=== PATIENT | male | born 1960 | race Caucasian/White ===

== ENCOUNTER → 2019-02-10 | Outpatient (CLI) | payer BC ==
[~2019-02-10] MED LIST: AMLO10TA82 PO; COMBIGAN OPTH OU; COMBIGAN OU; LATA2.5D5 OP; LTN005OP2 OU; [UNRECOGNIZED DRUG - OTHER] OU
--- NOTE | 2019-02-10 13:07 | Diagnostic Imaging Report ---
CLINICAL INDICATION: Patient with hypertension. COMPARISON: None. EXAM: Real-time carotid Doppler duplex imaging is performed bilaterally. Peak systolic velocity, ICA/CCA peak systolic ratio, spectral analysis, and vascular morphology are studied. FINDINGS: ARTERY VELOCITY Right Left CCA 0.88 m/s 1.05 m/s ICA 1.09 m/s 0.84 m/s ECA 1.26 m/s 1.33 m/s ICA/CCA 1.2 0.8 VERT.ART Antegrade Antegrade There is minimal atherosclerotic disease involving the bilateral carotid arteries. IMPRESSION: There is no grayscale or Doppler evidence of significant vascular stenosis. Dictated by: Dictated on workstation # [id number]
== END ==
LOC: RAD 11:11
PROVIDERS: ATTEND Internal Medicine
DX: I10 Essential (primary) hypertension (principal); R55 Syncope and collapse
CPT/HCPCS: 93005; 93880

== ENCOUNTER → 2019-02-24 | Outpatient (CLI) | payer BC ==
--- NOTE | 2019-02-24 08:50 | Diagnostic Imaging Report ---
PROCEDURE: CT head without contrast. TECHNIQUE: Multiple contiguous axial images were obtained through the brain without the use of intravenous contrast. Auto Exposure Controls were utilized during the CT exam to meet ALARA standards for radiation dose reduction. INDICATION: Persistent headache and lightheadedness. No prior studies are available for comparison. FINDINGS: The ventricles and sulci are within normal limits. No sulcal effacement or midline shift is seen. No acute intra-axial or extra-axial hemorrhage is detected. Cisterns are patent. Visualized paranasal sinuses are clear. There appears to be a metallic foreign body in the soft tissues just lateral to the left orbit. IMPRESSION: Unremarkable noncontrast CT of the brain. Dictated by: Dictated on workstation # [id number]
== END ==
LOC: RAD 07:44
PROVIDERS: ATTEND Internal Medicine
DX: R51 Headache (principal); R42 Dizziness and giddiness
CPT/HCPCS: 70450

== ENCOUNTER 2019-03-04 01:44 | Emergency (ER) | payer BC ==
[~2019-03-04] VITALS: Ht 175.3 cm; Wt 72.6 kg
--- OUTSIDE RECORDS SUMMARY | 2019-03-04 01:50 | XMS REPORT | Continuity of Care Document ---
Author Organization Unknown Address Unknown Allergies Active Description Code Type Severity Reaction Onset Reported/Identified Relationship to Patient Clinical Status Yes shellfish derived [id number] Drug Allergy Unknown N/A 03/19/2013 Medications There is no data. Problems Date Dx Coded Attending Type Code Diagnosis Diagnosed By 03/09/2013 DEBRA CARLOS, CALOS Lau Ot 211.3 BENIGN NEOPLASM LG BOWEL 03/09/2013 CALOS RICHARDSON MD Ot 562.10 DIVERTICULOSIS COLON (W/O MENT OF HEMORR 03/09/2013 CALOS RICHARDSON MD Ot V76.51 SCREEN MAL NEOP-COLON 03/21/2013 MER CARLOS, NATHAN Wade Ot 211.3 BENIGN NEOPLASM LG BOWEL 03/21/2013 MER CARLOS, NATHAN Wade Ot 285.1 AC POSTHEMORRHAG ANEMIA 03/21/2013 MER CARLOS, NATHAN Wade Ot 401.9 HYPERTENSION NOS 03/21/2013 MER CARLOS, NATHAN Wade Ot 455.6 HEMORRHOIDS NOS 03/21/2013 MER CARLOS, NATHAN Wade Ot 569.84 ANGIODYSPLASIA INTESTINE (W/O MENT OF HE 03/21/2013 MER CARLOS, NATHAN Wade Ot 998.11 HEMOR COMPLIC A PROCEDURE 11/22/2014 CALOS RICHARDSON MD Ot V72.84 02/24/2015 CALOS RICHARDSON MD Ot V72.84 12/25/2016 CALOS RICHARDSON MD, Ot V72.84 EXAM PRE-OPERATIVE NOS 12/26/2016 CALOS RICHARDSON MD Ot V72.84 EXAM PRE-OPERATIVE NOS 02/25/2019 CALOS RICHARDSON MD Ot R42 DIZZINESS AND GIDDINESS 02/25/2019 CALOS RICHARDSON MD Ot R51 HEADACHE Procedures Code Description Performed By Performed On 45.42 ENDOSC POLYPECTOMY OF LG INTEST 03/21/2013 Results There is no data. Encounters ACCT No. Visit Date/Time Discharge Status Pt. Type Provider Facility Loc./Unit Complaint [id number] 02/25/2019 10:06:00 02/25/2019 23:59:59 CLS Preadmit CALOS RICHARDSON MD [facility] CARD SYNCOPE HTH [id number] 02/24/2019 07:44:00 02/24/2019 23:59:59 CLS Outpatient CALOS RICHARDSON MD [facility] RAD PERSISTANT HEADACHE [id number] 02/10/2019 11:11:00 02/10/2019 23:59:59 CLS Outpatient CALOS RICHARDSON MD [facility] RAD PRESYNCOPE, HTN [id number] 03/19/2013 10:36:00 03/21/2013 15:25:00 DIS Inpatient NATHAN DEL ANGEL MD [facility] ICU RECTAL BLEEDING SYMPTOMATIC ANEMIA [id number] 03/09/2013 07:03:00 03/09/2013 10:00:00 DIS Outpatient CALOS RICHARDSON MD [facility] SDC SCREENING [id number] 03/03/2013 07:22:00 03/03/2013 23:59:59 CLS Outpatient CALOS RICHARDSON MD [facility] PREOP SCREENING [id number] 03/04/2019 01:46:00 ACT Emergency MARIALUISA MURCIA DO [facility] ER SEIZURE [id number] 11/22/2014 11:20:00 Document Registration
--- OUTSIDE RECORDS SUMMARY | 2019-03-04 01:50 | XMS REPORT | Continuity of Care Document ---
Author Author [facility] Organization [facility] Address Unknown Phone Unavailable Care Team Providers Care Account Support Associate Name Role Phone CALOS RICHARDSON MD PP Insurance Providers Payer Name Policy Number Subscriber Name Relationship [facility] [id number] Sharon Mosqueda K 02 Advance Directives Directive Response Recorded Date Advance Directives N 03/19/13 12:55pm Health Care Power of Park Landscape Architect N 03/19/13 12:55pm Organ Donor Y 03/19/13 12:55pm Problems No Known Problems or Medical conditions. Family History History Response Recorded Date/Time Hx Family Cancer N 03/19/13 1:05pm Hx Family Cardiac Disorders N 03/19/13 1:05pm Hx Family Stroke Y MOTHER 03/19/13 1:05pm Social History History Response Recorded Date/Time Alcohol Use Denies Use 03/19/13 1:03pm Recreational Drug Use N 03/19/13 1:03pm Hospitalization with Isolation Denies 05/14/13 2:51pm Sexually Transmitted Disease N 03/19/13 1:03pm Allergies, Adverse Reactions, Alerts Allergen Type Severity Reaction Last Updated shellfish derived Allergy Unknown 03/19/13 Medications Medication Dose Units Route Sig Qty Days [Combigan Opth] 1 Drop OU BID Latanoprost (Xalatan) 1 Drop OU HS Amlodipine Besylate 10 Mg PO DAILY [Comgiban Opth] 1 Drop OU BID [Combigan 0.2/0.5%] 1 Drops OU BID Latanoprost 2.5 Ml OP DAILY Response Recorded Date/Time Status not known Unknown Results No Known Relevant Diagnostic Tests, Laboratory Data and/or Discharge Summary. Procedures Procedure Code Date REMOVE IN/EX HEM GROUPS 2+ 02720 08/01/09 COLONOSCOPY AND BIOPSY 40306 03/09/13 ENDOSC POLYPECTOMY OF LG INTEST 45.42 03/21/13 Encounters Encounter Location Date/Time Discharged Inpatient [facility] 03/19/13 10:36am
--- OUTSIDE RECORDS SUMMARY | 2019-03-04 01:50 | XMS REPORT | Continuity of Care Document ---
Author Author [facility] Organization [facility] Address Unknown Phone Unavailable Care Team Providers Care Environmental Epidemiologist Name Role Phone CALOS RICHARDSON MD PP Insurance Providers Payer Name Policy Number Subscriber Name Relationship [facility] [id number] Sharon Mosqueda K 02 Advance Directives Directive Response Recorded Date Advance Directives N 03/19/13 12:55pm Health Care Power of Wire Charger N 03/19/13 12:55pm Organ Donor Y 03/19/13 12:55pm Problems No Known Problems or Medical conditions. Family History History Response Recorded Date/Time Hx Family Cancer N 03/19/13 1:05pm Social History History Response Recorded Date/Time Alcohol Use Denies Use 03/19/13 1:03pm Recreational Drug Use N 03/19/13 1:03pm Hospitalization with Isolation Denies 03/21/13 4:12pm Allergies, Adverse Reactions, Alerts Allergen Type Severity [...] Recorded Date/Time Status not known Unknown Results Test Date Result Interp. Ref. Range Activated Partial Thromboplast Time March 19, 2013 9:42am 37 SEC H 24-35 Alanine Aminotransferase (ALT/SGPT) March 19, 2013 9:42am 42 U/L N 30-65 Albumin March 19, 2013 9:42am 3.2 G/DL L 3.4-5.0 Alkaline Phosphatase March 19, 2013 9:42am 89 U/L N 50-136 Aspartate Amino Transf (AST/SGOT) March 19, 2013 9:42am 19 U/L N 15-37 BUN/Creatinine Ratio March 19, 2013 9:42am 20 - Basophils # (Auto) March 19, 2013 9:42am 0.0 10^3/uL N 0.0-0.1 Basophils (%) (Auto) March 19, 2013 9:42am 0 % N 0-10 Blood Urea Nitrogen March 19, 2013 9:42am 20 MG/DL H 7-18 Calcium Level March 19, 2013 9:42am 7.9 MG/DL L 8.5-10.1 Carbon Dioxide Level March 19, 2013 9:42am 25 MMOL/L N 21-32 Chloride Level March 19, 2013 9:42am 105 MMOL/L N 101-110 Creatinine March 19, 2013 9:42am 1.0 MG/DL N 0.6-1.3 Eosinophils # (Auto) March 19, 2013 9:42am 0.0 10^3/uL N 0.0-0.3 Eosinophils (%) (Auto) March 19, 2013 9:42am 1 % N 0-10 Glucose Level March 19, 2013 9:42am 133 MG/DL H 74-106 Hematocrit March 19, 2013 9:42am 15 % PL 40-54 Hemoglobin March 19, 2013 9:42am 5.2 G/DL PL 13.3-17.7 Lymphocytes # (Auto) March 19, 2013 9:42am 0.7 X 10^3 L 1.0-4.0 Lymphocytes (%) (Auto) March 19, 2013 9:42am 28 % N 12-44 Magnesium Level March 19, 2013 9:42am 2.0 MG/DL N 1.8-2.4 Mean Corpuscular Hemoglobin March 19, 2013 9:42am 34 PG N 25-34 Mean Corpuscular Hemoglobin Concent March 19, 2013 9:42am 34 G/DL N 32-36 Mean Corpuscular Volume March 19, 2013 9:42am 99 FL N 80-99 Mean Platelet Volume March 19, 2013 9:42am 11.4 FL H 7.4-10.4 Monocytes # (Auto) March 19, 2013 9:42am 0.2 X 10^3 N 0.0-1.0 Monocytes (%) (Auto) March 19, 2013 9:42am 8 % N 0-12 Neutrophils # (Auto) March 19, 2013 9:42am 1.6 X 10^3 L 1.8-7.8 Neutrophils (%) (Auto) March 19, 2013 9:42am 62 % N 42-75 Platelet Count March 19, 2013 9:42am 69 10^3/uL L 130-400 Potassium Level March 19, 2013 9:42am 3.8 MMOL/L N 3.6-5.0 Prothrombin Time March 19, 2013 9:42am 26.1 SEC H 12.2-14.7 Red Blood Count March 19, 2013 9:42am 1.55 10^6/uL L 4.35-5.85 Red Cell Distribution Width March 19, 2013 9:42am 12.0 % N 10.0-14.5 Sodium Level March 19, 2013 9:42am 137 MMOL/L N 135-145 Total Bilirubin March 19, 2013 9:42am 0.6 MG/DL N 0.0-1.0 Total Protein March 19, 2013 9:42am 5.9 G/DL L 6.4-8.2 Troponin I March 19, 2013 9:42am < 0.10 NG/ML 0.00-0.10 White Blood Count March 19, 2013 9:42am 2.6 10^3/uL L 4.3-11.0 Estimat Glomerular Filtration Rate March 19, 2013 9:42am > 60 - INR Comment March 19, 2013 9:42am 2.5 H 0.8-1.4 Procedures Procedure Code Date REMOVE IN/EX HEM GROUPS 2+ 24217 08/01/09 COLONOSCOPY AND BIOPSY 18254 03/09/13 MRSA Screen 08/01/09 Encounters Encounter Location Date/Time Discharged Inpatient [facility] 03/19/13 10:36am
--- OUTSIDE RECORDS SUMMARY | 2019-03-04 01:50 | XMS REPORT | Continuity of Care Document ---
Author Author [facility] Organization [facility] Address Unknown Phone Unavailable Care Team Providers Care Higher Education Administrator Name Role Phone SEUN ALATORRE MD PP Insurance Providers Payer Name Policy Number Subscriber Name Relationship [facility] [employer] [employer]. [id number] Sharon Mosqueda K 02 Advance Directives Directive Response Recorded Date Advance Directives N 03/09/13 7:41am Health Care Power of Fashion Design Professor N 03/09/13 7:41am Organ Donor N 03/09/13 7:41am Problems No Known Problems or Medical conditions. Allergies, Adverse Reactions, Alerts Allergen Type Severity Reaction Last Updated No Known Drug Allergies 03/09/13 Medications Medication Dose Units Route Sig Qty Days [Combigan 0.2/0.5%] 1 Drops OU BID Latanoprost 2.5 Ml OP DAILY Amlodipine Besylate 1 Each PO DAILY Response Recorded Date/Time Status not known Unknown Results No Known Relevant Diagnostic Tests, Laboratory Data and/or Discharge Summary. Procedures Procedure Code Date REMOVE IN/EX HEM GROUPS 2+ 46296 08/01/09 MRSA Screen 08/01/09
[2019-03-04] MEDS ORDERED: LACTATED RINGERS 1,000 ML IV ONE (01:53)
[2019-03-04 01:57] VITALS: BP 147/89
[2019-03-04 01:58] LABS: BASOPHILS % (AUTO) 0 % (0-10); EOSINOPHILS # (AUTO) 0.2 10^3/uL (0.0-0.3); EOSINOPHILS % (AUTO) 3 % (0-10); HEMATOCRIT 45 % (40-54); LYMPHOCYTES # (AUTO) 2.7 X 10^3 (1.0-4.0); LYMPHOCYTES % (AUTO) 39 % (12-44); MEAN CORPUSCULAR HEMOGLOBIN 34 PG (25-34); MEAN CORPUSCULAR HGB CONC 36 G/DL (32-36); MEAN CORPUSCULAR VOLUME 96 FL (80-99); MONOCYTES # (AUTO) 0.7 X 10^3 (0.0-1.0); MONOCYTES % (AUTO) 10 % (0-12); NEUTROPHILS # (AUTO) 3.4 X 10^3 (1.8-7.8); NEUTROPHILS % (AUTO) 49 % (42-75); PLATELET COUNT 153 10^3/uL (130-400); RED CELL DISTRIBUTION WIDTH 12.5 % (10.0-14.5); WHITE BLOOD COUNT 6.9 10^3/uL (4.3-11.0)
[2019-03-04 02:08] LABS: PROTHROMBIN TIME PATIENT 13.2 SEC (12.2-14.7)
--- NOTE | 2019-03-04 02:14 | ED Neurological Problem ---
General Chief Complaint: Neurological Problems Stated Complaint: SEIZURE Nursing Triage Note: pt arrives by EMS to room 3 after pt found seizing in bed by . pt has small bite to tip on tongue. upon arrival, pt alert and oriented x 2. pt reports no pain at this time. Nursing Sepsis Screen: No Definite Risk Source: patient (PT HAS NO RECOLLECTION OF EVENT), family (, DAUGHTER), EMS History of Present Illness Date Seen by Provider: March 04, 2019 Time Seen by Provider: 01:45 Initial Comments PT ARRIVES VIA EMS FROM HOME STATES THAT PT WENT TO BED AROUND MIDNIGHT AND WAS FINE SHE WOKE UP TO HIM SHAKING ALL OVER WITH SEIZURE -LIKE ACTIVITY, LASTED 1-2 MINUTES, THEN IMMEDIATELY HAD SNOROUS BREATHING AND WAS DIFFICULT TO ROUSE. LESS THAN 5 MINUTES AFTER THAT, PT HAD ANOTHER EPISODE OF SEIZURE ACTIVITY-FAM YVONNE DESCRIBES GENERALIZED TONIC-CLONIC ACTIVITY. AGAIN LASTING 1-2 MINUTES WITH SNOROUS BREATHING AFTER, AND DIFFICULT TO ROUSE--DAUGHTER IS MANUFACTURING MAINTENANCE MANAGER AND WITNESSED SECOND SEIZURE AND STATES HE APPEARED TO BE POST ICTAL FOR AT LEAST 20 MINUTES AFTERWARDS. EMS REPORT THAT PT APPEARED POST ICTAL ON THEIR ARRIVAL, AND PT WAS NOT TALKING OR FOLLOWING COMMANDS, BUT THAT MENTATION HAS IMPROVED ENROUTE AND WILL NOW SAY A FEW WORDS AND FOLLOW A FEW SIMPLE COMMANDS FAMILY REPORTS THAT HE WAS INCONTINENT OF SMALL AMOUNT OF URINE--HAVING VOIDED JUST BEFORE HE WENT TO BED. FAMILY REPORTS THAT PT HAS HAD MULTIPLE EPISODES AT WORK, OVER AT LEAST THE LAST TWO YEARS, OF POSSIBLE SYNCOPAL--TYPE EPISODES ( PT WOULD NOT ELABORATE HIS SYMPTOMS TO FAMILY, NOR SEEK MEDICAL CARE FOR THEM ), AND FAMILY HAD NEVER WITNESSED THEM UNTIL ABOUT 6-8 WEEKS AGO-- STATES HE WAS SITTING AT DINNER TABLE AND SUDDENLY PASSED OUT--LASTED 20 SECONDS OR SO, THEN WHEN PT CAME TO, HE WAS SOMEWHAT CONFUSED FOR SEVERAL MINUTES AND HAD NO RECOLLECTION OF EVENT AND DENIED THAT ANYTHING HAD HAPPENED. PT HAS REPORTED THAT HE WILL HAVE ALOT OF PRESSURE IN HIS HEAD RIGHT BEFORE THESE EPISODES. PT JUST RECENTLY SOUGHT CARE FROM HIS PCP FOR THESE EPISODES, AFTER WITNESSED ONE OF THE EPISODES HAD CAROTID ULTRASOUND 02/10/19 AND WAS NORMAL PT HAD CT OF HEAD 02/24/19 AND WAS NORMAL PT HAS NEW PT APPOINTMENT WITH DR. MCDERMOTT FOR CARDIOLOGY CONSULT TOMORROW. PT HAS ECHOCARDIOGRAM SCHEDULED FOR NEXT WEEK ON ARRIVAL TO ER, PT IS SLIGHTLY DROWSY, BUT IS ABLE TO ANSWER QUESTIONS AND FOLLOW COMMANDS. IS ORIENTED TO PERSON, PLACE, DATE, BUT DOES NOT KNOW WHY HE IS HERE OR WHAT HAS OCCURRED. PT DENIES ANY SYMPTOMS AT THIS TIME DENIES HEADACHE DENIES PAIN ANYWHERE DENIES VISION CHANGES DENIES DIZZINESS DENIES NAUSEA/VOMITING/DIARRHEA OR ABDOMINAL PAIN DENIES CHEST PAIN OR PALPITATIONS DENIES SHORTNESS OF BREATH DENIES PARESTHESIAS OR MOTOR DEFICITS DENIES ANY RECENT ILLNESS OR INJURY. PCP: DR. RICHARDSON Allergies and Home Medications Allergies Coded Allergies: shellfish derived (Verified Allergy, Unknown, 03/19/13) Home Medications Amlodipine Besylate 10 Mg Tablet, 10 MG PO DAILY, (Reported) Latanoprost 2.5 Ml Drops, 1 DROP OU HS, (Reported) [Combigan Opth] , 1 DROP OU BID, (Reported) Patient Home Medication List Home Medication List Reviewed: Yes Review of Systems Review of Systems Constitutional: no symptoms reported; No chills, No diaphoresis, No fever Eyes: No Symptoms Reported Ears, Nose, Mouth, Throat: no symptoms reported Respiratory: no symptoms reported; No cough, No short of breath Cardiovascular: see HPI; No chest pain, No palpitations; syncope Gastrointestinal: no symptoms reported Genitourinary: no symptoms reported Musculoskeletal: no symptoms reported; No muscle pain Skin: no symptoms reported Psychiatric/Neurological: See HPI, Cognitive Dysfunction (ONLY IN POST ICTAL STATE); Denies Headache; Tonic Clonic Seizures Endocrine: No Symptoms Reported Hematologic/Lymphatic: No Symptoms Reported Past Yfonpaa-Zjzfty-Ldsfol Hx Patient Social History Alcohol Use: Denies Use Recreational Drug Use: No Smoking Status: Never a Smoker Recent Foreign Travel: No Contact w/Someone Who Travel: No Recent Infectious Disease Expo: No Immunizations Up To Date Tetanus Booster (TDap): More than 5yrs PED Vaccines UTD: Yes Seasonal Allergies Seasonal Allergies: No Past Medical History Surgeries: Yes (LEFT HIP AND LEFT LEG FX'S / ORIF'S DUE TO FALLING OFF A ROOF WHEN YOUNG; COLONOSCOPY/POLYPECTOMY 2012) Orthopedic Respiratory: No Cardiac: Yes Hypertension Neurological: No Reproductive Disorders: No Sexually Transmitted Disease: No Genitourinary: No Gastrointestinal: Yes Hemorrhoids, Polyps Musculoskeletal: Yes (LEFT HIP AND LEG FX'S /ORIF'S ) HEENT: Yes Glaucoma Cancer: No Psychosocial: No Integumentary: No Blood Disorders: No Family Medical History No Pertinent Family Hx Physical Exam Vital Signs Vital Signs - First Documented 03/04/19 03/04/19 01:45 01:57 Temp 98.1 Pulse 76 Resp 23 B/P (MAP) 147/89 (108) Pulse Ox 89 O2 Delivery Room Air O2 Flow Rate 4.00 FiO2 97 Capillary Refill : Less Than 3 Seconds Height, Weight, BMI Height: 5'9.00" Weight: 160lbs. 7.0oz. 72.198229hv; BMI Method:Estimated General Appearance: WD/WN, no apparent distress, other (SLIGHTLY DROWSY) HEENT: PERRL/EOMI, normal ENT inspection, TMs normal, pharynx normal Neck: non-tender, full range of motion, supple, normal inspection; No carotid bruit Respiratory: normal breath sounds, no respiratory distress, no accessory muscle use Cardiovascular: normal peripheral pulses, regular rate, rhythm, no edema, no JVD, no murmur Peripheral Pulses: 2+ Dorsalis Pedis (R), 2+ Left Dors-Pedis (L) Gastrointestinal: normal bowel sounds, non tender, soft Back: no CVA tenderness Extremities: normal range of motion, non-tender, normal inspection, no pedal edema, no calf tenderness, normal capillary refill Neurologic/Psychiatric: brownfield redevelopment specialist II-XII nml as tested, no motor/sensory deficits, alert, normal mood/affect, other (ORIENTED TO PERSON, PLACE, DATE, BUT DOES NOT RECALL EPISODE ) Crainal Nerves: normal hearing, normal speech, PERRL Coordination/Gait: normal finger to nose Motor/Sensory: no motor deficit, no sensory deficit, no pronator drift Reflexes: 1+ Knee (R), 1+ Knee (L) Skin: normal color, warm/dry Progress/Results/Core Measures Results/Orders Lab Results Laboratory Tests Test 03/04/19 01:50 03/04/19 01:57 03/04/19 03:22 Range/Units White Blood Count 6.9 4.3-11.0 10^3/uL Red Blood Count 4.72 4.35-5.85 10^6/uL Hemoglobin 16.0 13.3-17.7 G/DL Hematocrit 45 40-54 % Mean Corpuscular Volume 96 80-99 FL Mean Corpuscular Hemoglobin 34 25-34 PG Mean Corpuscular Hemoglobin Concent 36 32-36 G/DL Red Cell Distribution Width 12.5 10.0-14.5 % Platelet Count 153 130-400 10^3/uL Mean Platelet Volume 12.0 H 7.4-10.4 FL Neutrophils (%) (Auto) 49 42-75 % Lymphocytes (%) (Auto) 39 12-44 % Monocytes (%) (Auto) 10 0-12 % Eosinophils (%) (Auto) 3 0-10 % Basophils (%) (Auto) 0 0-10 % Neutrophils # (Auto) 3.4 1.8-7.8 X 10^3 Lymphocytes # (Auto) 2.7 1.0-4.0 X 10^3 Monocytes # (Auto) 0.7 0.0-1.0 X 10^3 Eosinophils # (Auto) 0.2 0.0-0.3 10^3/uL Basophils # (Auto) 0.0 0.0-0.1 10^3/uL Prothrombin Time 13.2 12.2-14.7 SEC INR Comment 1.0 0.8-1.4 Activated Partial Thromboplast Time 25 24-35 SEC Sodium Level 139 135-145 MMOL/L Potassium Level 4.1 3.6-5.0 MMOL/L Chloride Level 106 98-107 MMOL/L Carbon Dioxide Level 13 L 21-32 MMOL/L Anion Gap 20 H 5-14 MMOL/L Blood Urea Nitrogen 12 7-18 MG/DL Creatinine 1.01 0.60-1.30 MG/DL Estimat Glomerular Filtration Rate > 60 BUN/Creatinine Ratio 12 Glucose Level 99 70-105 MG/DL Calcium Level 9.1 8.5-10.1 MG/DL Corrected Calcium 9.0 8.5-10.1 MG/DL Magnesium Level 2.9 H 1.8-2.4 MG/DL Total Bilirubin 0.6 0.1-1.0 MG/DL Aspartate Amino Transf (AST/SGOT) 27 5-34 U/L Alanine Aminotransferase (ALT/SGPT) 17 0-55 U/L Alkaline Phosphatase 72 40-136 U/L Total Creatine Kinase 140 30-200 U/L Creatine Kinase MB 2.4 <6.6 NG/ML Myoglobin 345.7 H 10.0-92.0 NG/ML Troponin I < 0.028 <0.028 NG/ML Total Protein 7.1 6.4-8.2 GM/DL Albumin 4.1 3.2-4.5 GM/DL TSH [place] Testing 0.87 0.35-4.94 UIU/ML Glucometer 94 70-110 MG/DL Urine Color YELLOW Urine Clarity CLEAR Urine pH 5 5-9 Urine Specific [place] 1.015 L 1.016-1.022 Urine Protein NEGATIVE NEGATIVE Urine Glucose (UA) NEGATIVE NEGATIVE Urine Ketones NEGATIVE NEGATIVE Urine Nitrite NEGATIVE NEGATIVE Urine Bilirubin NEGATIVE NEGATIVE Urine Urobilinogen NORMAL NORMAL MG/DL Urine Leukocyte Esterase NEGATIVE NEGATIVE Urine RBC (Auto) NEGATIVE NEGATIVE Urine RBC NONE /HPF Urine WBC NONE /HPF Urine Squamous Epithelial Cells NONE /HPF Urine Crystals NONE /LPF Urine Bacteria NEGATIVE /HPF Urine Casts NONE /LPF Urine Mucus SMALL H /LPF Urine Other FEW SPERM H /HPF Urine Culture Indicated NO My Orders Orders - MARIALUISA MURCIA DO Accucheck Stat ONCE (03/04/19 01:53) Ed Iv/Invasive Line Start (03/04/19 01:53) Ekg Tracing (03/04/19:53) O2 (03/04/19:53) Monitor-Rhythm Ecg Trace Only (03/04/19:53) Ct Head Wo-R/O Stroke (03/04/19 01:53) Chest 1 View, Ap/Pa Only (03/04/19:53) Cbc With Automated Diff (03/04/19 01:53) Comprehensive Metabolic Panel (03/04/19 01:53) Creatine Kinase (03/04/19 01:53) Creatine Kinase Mb (03/04/19:53) Magnesium (03/04/19:53) Protime With Inr (03/04/19:53) Partial Thromboplastin Time (03/04/19 01:53) Thyroid Analyzer (03/04/19 01:53) Troponin I (03/04/19 01:53) Ua Culture If Indicated (03/04/19:53) Myoglobin Serum (03/04/19 01:53) Ed Iv/Invasive Line Start (03/04/19 01:53) Lactated Ringers (Lr 1000 Ml Iv Solution (03/04/19 01:53) Levetiracetam Injection (Keppra Injectio (03/04/19 02:30) Ns (Ivpb) (Sodium Chloride 0.9% Ivpb Bag (03/04/19 02:39) Levetiracetam Injection (Keppra Injectio (03/04/19 02:39) Levetiracetam Injection (Keppra Injectio (03/04/19 02:40) Medications Given in ED Current Medications Medications Dose Ordered Sig/Toro Route Start Time Stop Time Status Last Admin Dose Admin Lactated Ringer's 1,000 ml @ 0 mls/hr Q0M ONCE IV 03/04/19 01:53 03/04/19 01:55 DC 03/04/19 02:10 0 MLS/HR Vital Signs/I&O 03/04/19 03/04/19 03/04/19 03/04/19 01:45 01:57 01:58 03:07 Temp 98.1 98.1 Pulse 76 76 66 Resp 21 B/P (MAP) 147/89 (108) 147/89 (108) 145/97 (113) Pulse Ox 89 89 95 O2 Delivery Room Air Room Air Nasal Cannula O2 Flow Rate 4.00 4.00 FiO2 97 03/04/19 03/04/19 03:39 04:14 Temp 98.2 Pulse 66 68 Resp 22 B/P (MAP) 143/88 (106) 139/96 (110) Pulse Ox 96 95 O2 Delivery Nasal Cannula Nasal Cannula O2 Flow Rate 4.00 4.00 Blood Pressure Mean: 108 FSBG Bedside Testing Finger Stick Blood Glucose: 94 Blood Glucose Action Taken: rn notified Progress Progress Note : Progress Note UNEVENTFUL ER STAY NO SEIZURES OR SYNCOPAL EPISODES NO SYMPTOMS OF ANY KIND DURING ER STAY VITALS REMAINED STABLE GIVEN KEPPRA LOADING DOSE Initial ECG Impression Date: March 04, 2019 Initial ECG Impression Time: 01:50 Initial ECG Rate: 76 Initial ECG Rhythm: Normal Sinus Initial ECG Impression: Normal Diagnostic Imaging Comments CXR--NO ACUTE PROCESS, PENDING RADIOLOGIST REVIEW CT HEAD--NO ACUTE PROCESS, BB ABOVE LEFT EYE ( PT STATES IS FROM CHILDHOOD) PER [facility] RADIOLOGIST VIA PHONE AT [phone] Reviewed: Reviewed by Me, Discussed w/Radiologist Departure Communication (Admissions) NO BEDS AVAILABLE HERE 0248--CALLED [facility], HAVE BED. PAGING HOSPITALIST [phone]--SPOKE WITH DR. GRAJEDA, HOSPITALIST, ACCEPTS PT FOR ADMIT/TRANSFER. NO ADDITIONAL RECOMMENDATIONS AT THIS TIME Impression Primary Impression: NEW ONSET SEIZURES Disposition: 02 XFER SHT-TRM HOSP Condition: Stable Transfer Transfer Facility: [facility] Method of Transfer: EMS Departure-Patient Inst. Referrals: CALOS RICHARDSON MD (PCP/Family) Primary Care Physician MARIALUISA MURCIA DO March 04, 2019 02:14
[2019-03-04 02:17] LABS: ALANINE AMINOTRANSFERASE 17 U/L (0-55); ALBUMIN 4.1 GM/DL (3.2-4.5); ALKALINE PHOSPHATASE 72 U/L (40-136); BILIRUBIN,TOTAL 0.6 MG/DL (0.1-1.0); BUN/CREATININE RATIO 12; CALCIUM 9.1 MG/DL (8.5-10.1); CARBON DIOXIDE 13 MMOL/L (21-32); CHLORIDE 106 MMOL/L (98-107); CREATINE KINASE 140 U/L (30-200); CREATININE SERUM 1.01 MG/DL (0.60-1.30); GFR ESTIMATED > 60; GLUCOSE 99 MG/DL (70-105); MAGNESIUM 2.9 MG/DL (1.8-2.4); POTASSIUM 4.1 MMOL/L (3.6-5.0); SODIUM 139 MMOL/L (135-145); TOTAL PROTEIN 7.1 GM/DL (6.4-8.2)
[2019-03-04] MEDS ORDERED: LEVETIRACETAM INJECTION 1,000 MG in NS (IVPB) 100 ML IV SCH (02:30)
[2019-03-04 02:37] LABS: CREATINE KINASE MB 2.4 NG/ML (<6.6); TSH (THYROID ANALYZER) 0.87 UIU/ML (0.35-4.94)
[2019-03-04] MEDS ORDERED: NS (IVPB) 100 ML ONE (02:39)
[2019-03-04] MEDS ORDERED: LEVETIRACETAM 500 MG/5 ML (KEPPRA) VIAL IV ONE ×2 (02:39→02:40)
[2019-03-04 03:07] VITALS: BP 145/97
[2019-03-04 03:29] LABS: BILIRUBIN,URINE NEGATIVE (NEGATIVE); CLARITY,URINE CLEAR; COLOR,URINE YELLOW; GLUCOSE, URINE (UA) NEGATIVE (NEGATIVE); KETONES,URINE NEGATIVE (NEGATIVE); LEUKOCYTE ESTERASE ,URINE NEGATIVE (NEGATIVE); NITRITE,URINE NEGATIVE (NEGATIVE); PH,URINE 5 (5-9); PROTEIN,URINE NEGATIVE (NEGATIVE); UROBILINOGEN,URINE NORMAL (NORMAL)
[2019-03-04 03:39] VITALS: BP 143/88
[2019-03-04 03:40] LABS: BACTERIA,URINE NEGATIVE /HPF; URINE OTHER FEW SPERM /HPF
[2019-03-04 04:14] VITALS: BP 139/96
--- NOTE | 2019-03-04 06:35 | Diagnostic Imaging Report ---
PROCEDURE: CT head wo r/o stroke. TECHNIQUE: Multiple contiguous axial images were obtained through the brain without the use of intravenous contrast. Auto Exposure Controls were utilized during the CT exam to meet ALARA standards for radiation dose reduction. INDICATION: Seizure. Comparison: 02/24/2019. Findings: No hyperdense hemorrhage or space-occupying mass. No hydrocephalus or midline shift. Murguia-white matter differentiation is well preserved. Basilar cisterns remain patent. No skull fracture. Stable metallic focus superficial to the left globe which may represent a piercing. Paranasal sinuses and mastoid air cells are clear. Impression: 1. No acute intracranial process. 2. Findings are in agreement with the preliminary report. Dictated by: Dictated on workstation # [id number]
--- NOTE | 2019-03-04 06:47 | Diagnostic Imaging Report ---
INDICATION: Seizure. COMPARISON: None available. FINDINGS: No consolidation within the visualized lungs. Retrocardiac linear opacities are likely due to combination of atelectasis and normal pulmonary vasculature. No pleural effusion or pneumothorax. Heart is borderline enlarged, but likely accentuated due to portable technique. IMPRESSION: 1. Left lower lobe linear subsegmental atelectasis. No acute process. Dictated by: Dictated on workstation # [id number]
== END 2019-03-04 04:14 | disposition short-term general hospital (02) ==
LOC: EDUNIT# 01:44 → ER 01:46
DX: R56.9 Unspecified convulsions (principal); I10 Essential (primary) hypertension; Z87.19 Personal history of other diseases of the digestive system; Z86.010 Personal history of colon polyps
CPT/HCPCS: 36415; 70450; 71045; 80053; 81000; 82550; 82553; 82962; 83735; 83874; 84443; 84484; 85025; 85610; 85730; 93005; 93041; 96361; 96365

== ENCOUNTER 2019-04-20 20:00 | Outpatient (CLI) | payer BC | END 2019-04-21 06:51 | disposition home or self-care (01) | LOC: SLEEP 20:00 | PROVIDERS: ATTEND Family Medicine | DX: G40.309 Generalized idiopathic epilepsy and epileptic syndromes, not intractable, without status epilepticus (principal); I10 Essential (primary) hypertension; R06.81 Apnea, not elsewhere classified; R53.83 Other fatigue; G47.36 Sleep related hypoventilation in conditions classified elsewhere; G47.61 Periodic limb movement disorder | CPT/HCPCS: 95810 ==

== ENCOUNTER 2019-11-01 12:03 | Outpatient (RCR) | payer BC | END 2020-01-30 | disposition home or self-care (01) | LOC: CARD 12:03 | PROVIDERS: ATTEND Family Medicine | DX: R00.1 Bradycardia, unspecified (principal) | CPT/HCPCS: 93225; 93226 ==

== ENCOUNTER 2023-01-29 21:02 | Inpatient (IN) | payer BC ==
[~2023-01-29] VITALS: Ht 182.9 cm; Wt 110.0 kg
[2023-01-29] MEDS ORDERED: fentaNYL INJ 100 MCG/2 ML AMP IVP STA (21:39)
[2023-01-29] MEDS ORDERED: LACTATED RINGERS 1,000 ML IV ONE ×2 (21:45→23:30)
[2023-01-29] MEDS ORDERED: ONDANSETRON 4 MG/2 ML (SDV) Z0FRAN IVP ONE (21:45)
[2023-01-29] MEDS ORDERED: PANTOPRAZOLE 40 MG (PROTONIX) VIAL IV ONE (21:45)
[2023-01-29 21:52] LABS: BASOPHILS # (AUTO) 0.1 10^3/uL (0.0-0.1); BASOPHILS % (AUTO) 0 % (0-10); EOSINOPHILS # (AUTO) 0.3 10^3/uL (0.0-0.3); EOSINOPHILS % (AUTO) 2 % (0-10); HEMATOCRIT 48 % (40-54); LYMPHOCYTES # (AUTO) 1.2 10^3/uL (1.0-4.0); LYMPHOCYTES % (AUTO) 11 % (12-44); MEAN CORPUSCULAR HEMOGLOBIN 33 pg (25-34); MEAN CORPUSCULAR HGB CONC 35 g/dL (32-36); MEAN CORPUSCULAR VOLUME 93 fL (80-99); MEAN PLATELET VOLUME 11.9 fL (9.0-12.2); MONOCYTES # (AUTO) 0.7 10^3/uL (0.0-1.0); MONOCYTES % (AUTO) 6 % (0-12); NEUTROPHILS # (AUTO) 9.2 10^3/uL (1.8-7.8); NEUTROPHILS % (AUTO) 80 % (42-75); PLATELET COUNT 158 10^3/uL (130-400); WHITE BLOOD COUNT 11.5 10^3/uL (4.3-11.0)
[2023-01-29 21:57] LABS: ALBUMIN 3.9 GM/DL (3.2-4.5); POTASSIUM 3.6 MMOL/L (3.6-5.0)
[2023-01-29 21:59] LABS: TOTAL PROTEIN 6.9 GM/DL (6.4-8.2)
[2023-01-29 22:01] LABS: BILIRUBIN,TOTAL 6.9 MG/DL (0.1-1.0)
[2023-01-29 22:03] LABS: CREATININE SERUM 0.97 MG/DL (0.60-1.30)
[2023-01-29 22:06] LABS: MAGNESIUM 2.2 MG/DL (1.6-2.4)
[2023-01-29 22:12] LABS: ERYTHROCYTE SEDIMENTATION RATE 12 MM/HR (0-30)
[2023-01-29 22:19] LABS: INR 0.9 (0.8-1.4); PROTHROMBIN TIME PATIENT 12.9 SEC (12.2-14.7)
--- NOTE | 2023-01-29 22:43 | ED GI ---
General Chief Complaint: Abdominal/GI Problems Stated Complaint: ABDOMINAL PAIN Nursing Triage Note: PT AMB TO ED BY POV WITH C/O APD PAIN, N/V. PT REPORTS UPPER ABD PAIN AND NAUSEA BEGINNING FRIDAY, MUCH WORSE TODAY. PT HAS HAD DECREASED APPETITE, LBM TODAY AND LOOSE, DENIES BLACK OR BLOODY STOOLS. PAIN AND NAUSEA WORSE AFTER ATTEMPTING TO EAT AND WHEN TAKING A DEEP BREATH. Source of Information: Spouse History of Present Illness Date Seen by Provider: Jan 29, 2023 Time Seen by Provider: 21:35 Initial Comments PT ARRIVES VIA POV FROM HOME PT HAS BEEN HAVING EPIGASTRIC ABDOMINAL PAIN AND NAUSEA SINCE FRIDAY HIS PAIN HAS PROGRESSIVELY GOTTEN WORSE, AND TODAY HE BEGAN VOMITING--NO HEMATEMESIS OR COFFEE GROUND EMESIS HAS HAS DECREASED APPETITE, AND HAS HAD MINIMAL INTAKE SINCE FRIDAY, HE HAS BEEN DRINKING LIQUIDS, BUT TODAY HE HAS BEEN VOMITING LIQUIDS BACK UP TODAY HE TRIED TO EAT CHICKEN NOODLE SOUP AND PAIN AND NAUSEA BECAME MUCH WORSE, AND TRIED MYLANTA AND IT MADE IT MUCH WORSE AND VOMITED AFTERWARD ALSO HURTS HIS ABDOMEN TO TAKE A DEEP BREATH HAD A LOOSE BM AROUND 1500 TODAY--NO BLACK/BLOODY/TARRY STOOLS HE IS STILL URINATING A NORMAL AMOUNT, BUT HAS BEEN A DARK ORANGE COLOR NO KNOWN FEVER, NO SWEATS OR CHILLS PT NOTICED THAT HIS SKIN WAS YELLOW A COUPLE OF DAYS AGO. HE HAS NOT BEEN ABLE TO KEEP DOWN HIS REGULAR MEDICATIONS TODAY PT HAS NOT HAD ANY PRIOR ABDOMINAL SURGERIES OR ANY PRIOR GI PROBLEMS HE HAS HISTORY OF HTN, EPILEPSY, MIGRAINES, GLAUCOMA HE HAS HAD HEMORRHOID SURGERY AND A COLONOSCOPY. PCP: DR. LORRAINE MORALES Allergies and Home Medications Allergies Coded Allergies: shellfish derived (Verified Allergy, Unknown, 03/19/13) Patient Home Medication List Home Medication List Reviewed: Yes Amlodipine Besylate (Norvasc Tablet) 10 Mg Tablet, 10 MG PO DAILY, (Reported) Entered as Reported by: DILMA DIAZ on 03/09/13 1341 Latanoprost (Xalatan) 2.5 Ml Drops, 1 DROP OU HS, (Reported) Entered as Reported by: CATHI CARDONA on 03/19/13 1232 [Combigan Opth] , 1 DROP OU BID, (Reported) Entered as Reported by: CATHI CARDONA on 03/19/13 1233 Review of Systems Review of Systems Constitutional: see HPI; No fever; malaise, weakness EENTM: No Symptoms Reported Respiratory: No Symptoms Reported Cardiovascular: No Symptoms Reported Gastrointestinal: See HPI, Abdominal Pain, Nausea, Poor Appetite, Poor Fluid Intake, Vomiting Genitourinary: See HPI Musculoskeletal: no symptoms reported Skin: see HPI, change in color Psychiatric/Neurological: No Symptoms Reported Endocrine: No Symptoms Reported Hematologic/Lymphatic: No Symptoms Reported Past Cgzdixf-Kqxmjp-Klsita Hx Patient Social History Tobacco Use?: No Use of E-Cig and/or Vaping dev: No Substance use?: No Alcohol Use?: No Pt feels they are or have been: No Immunizations Up To Date Tetanus Booster (TDap): More than 5yrs PED Vaccines UTD: Yes Influenza Vaccine Up-to-Date: Yes; Up-to-Date First/Initial COVID19 Vaccinat: X2 Second COVID19 Vaccination Gabriel: X2 Seasonal Allergies Seasonal Allergies: No Past Medical History Surgery/Hospitalization HX: EPILEPSY, MIGRAINES, HTN, GLAUCOMA Surgeries: Yes Orthopedic, Rectal Respiratory: No Cardiac: Yes Hypertension Neurological: Yes (SEIZURES DX 2019) Headaches /Migraines, Seizure Disorder Reproductive Disorders: No Sexually Transmitted Disease: No Genitourinary: No Gastrointestinal: Yes Hemorrhoids, Polyps Musculoskeletal: Yes (LEFT HIP AND LEG FX'S /ORIF'S ) Fractures Endocrine: No HEENT: Yes Glaucoma Cancer: No Psychosocial: No Integumentary: No Blood Disorders: No Family Medical History No Pertinent Family Hx PAST SURGICAL HISTORY: -HEMORRHOIDECTOMY 2008 -COLONOSCOPY / POLYPECTOMY 2012 -LEFT HIP FRACTURE WITH ORIF AND LEFT LEG FRACTURE WITH ORIF DUE TO FALLING OFF A ROOF WHEN YOUNG Physical Exam Vital Signs Vital Signs - First Documented 01/29/23 21:22 Temp 36.0 Pulse 81 Resp 18 B/P (MAP) 189/127 (147) Pulse Ox 93 O2 Delivery Room Air Capillary Refill : Less Than 3 Seconds Height/Weight/BMI Height: 5'9.00" Weight: 160lbs. 7.0oz. 72.681651so; 32.00 BMI Method:Estimated General Appearance: WD/WN, other (LOOKS UNCOMFORTABLE, MOANING, HOLDING HANDS OVER UPPER ABDOMEN AND COVERING EYES. ) HEENT: scleral icterus (R), scleral icterus (L) Neck: normal inspection Respiratory: normal breath sounds, no respiratory distress, no accessory muscle use Cardiovascular: regular rate, rhythm, no murmur Gastrointestinal: abnormal bowel sounds (DECREASED), guarding, rebound, tenderness (MARKED EPIGASTRIC TENDERNESS); No hernia, No mass Extremities: normal inspection, normal capillary refill Back: no CVA tenderness Neurologic/Psychiatric: real estate consultant II-XII nml as tested, no motor/sensory deficits, alert, oriented x 3 Skin: warm/dry, jaundice Focused Exam Lactate Level 01/29/23 21:55: Lactic Acid Level 1.17 Lactic Acid Level Laboratory Tests Test 01/29/23 21:55 Lactic Acid Level 1.17 MMOL/L (0.50-2.00) Progress/Results/Core Measures Results/Orders Lab Results Laboratory Tests Test 01/29/23 21:34 01/29/23 21:55 01/29/23 23:59 Range/Units White Blood Count 11.5 H 4.3-11.0 10^3/uL Red Blood Count 5.17 4.30-5.52 10^6/uL Hemoglobin 17.0 13.3-17.7 g/dL Hematocrit 48 40-54 % Mean Corpuscular Volume 93 80-99 fL Mean Corpuscular Hemoglobin 33 25-34 pg Mean Corpuscular Hemoglobin Concent 35 32-36 g/dL Red Cell Distribution Width 12.0 10.0-14.5 % Platelet Count 158 130-400 10^3/uL Mean Platelet Volume 11.9 9.0-12.2 fL Immature Granulocyte % (Auto) 0 % Neutrophils (%) (Auto) 80 H 42-75 % Lymphocytes (%) (Auto) 11 L 12-44 % Monocytes (%) (Auto) 6 0-12 % Eosinophils (%) (Auto) 2 0-10 % Basophils (%) (Auto) 0 0-10 % Neutrophils # (Auto) 9.2 H 1.8-7.8 10^3/uL Lymphocytes # (Auto) 1.2 1.0-4.0 10^3/uL Monocytes # (Auto) 0.7 0.0-1.0 10^3/uL Eosinophils # (Auto) 0.3 0.0-0.3 10^3/uL Basophils # (Auto) 0.1 0.0-0.1 10^3/uL Immature Granulocyte # (Auto) 0.0 0.0-0.1 10^3/uL Erythrocyte Sedimentation Rate 12 0-30 MM/HR Prothrombin Time 12.9 12.2-14.7 SEC INR Comment 0.9 0.8-1.4 Activated Partial Thromboplast Time 27 24-35 SEC Sodium Level 137 135-145 MMOL/L Potassium Level 3.6 3.6-5.0 MMOL/L Chloride Level 100 98-107 MMOL/L Carbon Dioxide Level 22 21-32 MMOL/L Anion Gap 15 H 5-14 MMOL/L Blood Urea Nitrogen 10 7-18 MG/DL Creatinine 0.97 0.60-1.30 MG/DL Estimat Glomerular Filtration Rate 89 BUN/Creatinine Ratio 10 Glucose Level 99 70-105 MG/DL Calcium Level 9.0 8.5-10.1 MG/DL Corrected Calcium 9.1 8.5-10.1 MG/DL Magnesium Level 2.2 1.6-2.4 MG/DL Total Bilirubin 6.9 H 0.1-1.0 MG/DL Aspartate Amino Transf (AST/SGOT) 287 H 5-34 U/L Alanine Aminotransferase (ALT/SGPT) 405 H 0-55 U/L Alkaline Phosphatase 225 H 40-136 U/L Ammonia 49 H 11-32 UMOL/L Myoglobin 40.1 10.0-92.0 NG/ML C-Reactive Protein High Sensitivity 2.40 H 0.00-0.50 MG/DL Total Protein 6.9 6.4-8.2 GM/DL Albumin 3.9 3.2-4.5 GM/DL Amylase Level 47 25-125 U/L Lipase 35 8-78 U/L Lactic Acid Level 1.17 0.50-2.00 MMOL/L Urine Color YELLOW Urine Clarity CLEAR Urine pH 6.0 5-9 Urine Specific [place] 1.015 L 1.016-1.022 Urine Protein NEGATIVE NEGATIVE Urine Glucose (UA) NEGATIVE NEGATIVE Urine Ketones 3+ H NEGATIVE Urine Nitrite NEGATIVE NEGATIVE Urine Bilirubin 1+ H NEGATIVE Urine Urobilinogen 2.0 < = 1.0 MG/DL Urine Leukocyte Esterase NEGATIVE NEGATIVE Urine RBC (Auto) TRACE-I H NEGATIVE Urine RBC RARE /HPF Urine WBC RARE /HPF Urine Squamous Epithelial Cells RARE /HPF Urine Crystals NONE /LPF Urine Bacteria NEGATIVE /HPF Urine Casts NONE /LPF Urine Mucus NEGATIVE /LPF Urine Culture Indicated NO My Orders Orders - MARIALUISA MURCIA DO Ed Iv/Invasive Line Start (01/29/23 21:39) Monitor-Rhythm Ecg Trace Only (01/29/23 21:39) Chest 1 View, Ap/Pa Only (01/29/23 21:39) Ammonia (01/29/23 21:39) Amylase (01/29/23 21:39) Cbc With Automated Diff (01/29/23 21:39) Comprehensive Metabolic Panel (01/29/23:39) Hs C Reactive Protein (01/29/23 21:39) Lactic Acid Analyzer (01/29/23 21:39) Lipase (01/29/23 21:39) Magnesium (01/29/23:39) Protime With Inr (01/29/23:39) Partial Thromboplastin Time (01/29/23:39) Ua Culture If Indicated (01/29/23:39) Erythrocyte Sedimentation Rate (01/29/23 21:39) Myoglobin Serum (01/29/23 21:39) Ed Iv/Invasive Line Start (01/29/23 21:39) Lactated Ringers (Lr 1000 Ml Iv Solution (01/29/23 21:45) Ondansetron Injection (Zofran Injectio (01/29/23 21:45) Fentanyl Inj (Sublimaze Injection) (01/29/23 21:39) Pantoprazole Injection (Protonix Injecti (01/29/23 21:45) Ct Chest/Abdomen/Pelvis Wo (01/29/23 21:39) Hepatitis Panel Acute (01/29/23 23:28) Ed Iv/Invasive Line Start (01/29/23 23:29) Lactated Ringers (Lr 1000 Ml Iv Solution (01/29/23 23:30) Fentanyl Inj (Sublimaze Injection) (01/29/23 23:45) Medications Given in ED Current Medications Medications Dose Ordered Sig/Toro Route Start Time Stop Time Status Last Admin Dose Admin Fentanyl Citrate 50 mcg ONCE ONCE IVP 01/29/23 23:45 01/29/23 23:46 DC 01/29/23 23:55 50 MCG Lactated Ringer's 1,000 ml @ 0 mls/hr Q0M ONCE IV 01/29/23 21:45 01/29/23 21:46 DC 01/29/23 21:57 1,000 MLS/HR Lactated Ringer's 1,000 ml @ 0 mls/hr Q0M ONCE IV 01/29/23 23:30 01/29/23 23:31 DC 01/29/23 23:39 1,000 MLS/HR Ondansetron HCl 8 mg ONCE ONCE IVP 01/29/23 21:45 01/29/23 21:46 DC 01/29/23 21:57 8 MG Pantoprazole 40 mg ONCE ONCE IV 01/29/23 21:45 01/29/23 21:46 DC 01/29/23 21:57 40 MG Vital Signs/I&O 01/29/23 01/30/23 21:22 00:36 Temp 36.0 37.8 Pulse 81 90 Resp 18 B/P (MAP) 189/127 (147) 172/90 Pulse Ox 93 O2 Delivery Room Air 01/29/23 23:59 Intake Total 1000 ml Balance 1000 ml Blood Pressure Mean: 147 Progress Progress Note : Progress Note GIVEN: -IV FLUIDS -ZOFRAN -PROTONIX -FENTANYL PAIN AND NAUSEA IMPROVED WITH THE ABOVE VITALS ARE STABLE, NO DETERIORATION IN PT'S CONDITION DURING ER STAY CT SCAN DONE WITHOUT CONTRAST DUE TO PT'S HISTORY OF SHELLFISH ALLERGY. HEPATITIS PANEL IS PENDING AT THIS TIME PT'S SYMPTOMS AND LAB FINDINGS, AND DILATED GALLBLADDER NOTED ON CT SCAN ARE SUSPICIOUS FOR CHOLECYSTITIS, WILL ORDER ABDOMINAL ULTRASOUND IN AM, AND IF THAT IS NORMAL WILL ALSO HAVE HIDA SCAN DONE. NO EVIDENCE OF SEPSIS AT THIS TIME, PT IS AFEBRILE, NORMAL WBC, AND NORMAL VITALS. DISCUSSED TEST RESULTS, NEED FOR ADMIT AND PLAN OF CARE, AND PT IS AGREEABLE TO PLAN. REVIEWED PRIOR RECORDS, INCLUDING ER VISITS, ADMITS/H&P'S/CONSULTS/DISCHARGE SUMMARIES, TESTS/PROCEDURES. Diagnostic Imaging Comments CXR--POOR INSPIRATION, BUT NO OBVIOUS ACUTE PROCESS, PENDING RADIOLOGIST REVIEW CT CHEST/ABDOMEN/PELVIS--PER [facility] VIA FAX AT 9001 -NORMAL CHEST CT -MILD GALLBLADDER DISTENTION, NO CALCIFIED GALLSTONES, NO DUCTAL DILATION. -LIVER UNREMARKABLE -PANCREAS UNREMARKABLE, NO DUCTAL DILATION -NO SPECIFIC CAUSE FOR EPIGASTRIC PAIN IS IDENTIFIED ON NON-CONTRAST CT. Reviewed: Reviewed by Pa Departure Communication (Admissions) [id number]--SPOKE WITH DR. RICHARDSON, HOSPITALIST, ACCEPTS PT FOR ADMIT. WILL CONSULT SURGERY IN AM. Impression Primary Impression: Abdominal pain Additional Impressions: Jaundice Hx of seizure disorder HTN (hypertension) Disposition: ADMITTED INPATIENT Condition: Stable Admissions Decision to Admit Reason: Admit from ER (General) Decision to Admit/Date: Jan 29, 2023 Time/Decision to Admit Time: 23:35 Departure-Patient Inst. Referrals: LORRAINE MORALES MD (PCP/Family) Primary Care Physician MARIALUISA MURCIA DO Jan 29, 2023 22:43
[2023-01-29] MEDS ORDERED: fentaNYL INJ 100 MCG/2 ML AMP IVP ONE (23:45)
[2023-01-30 00:31] LABS: CLARITY,URINE CLEAR; COLOR,URINE YELLOW; GLUCOSE, URINE (UA) NEGATIVE (NEGATIVE); KETONES,URINE 3+ (NEGATIVE); LEUKOCYTE ESTERASE ,URINE NEGATIVE (NEGATIVE); NITRITE,URINE NEGATIVE (NEGATIVE); PROTEIN,URINE NEGATIVE (NEGATIVE)
[2023-01-30 00:40] LABS: BACTERIA,URINE NEGATIVE /HPF; BILIRUBIN,URINE 1+ (NEGATIVE); RBC,URINE RARE /HPF; SQUAMOUS EPITHELIAL CELL,UR RARE /HPF; WBC,URINE RARE /HPF
[2023-01-30 00:53] VITALS: BP 179/88
[2023-01-30] MEDS ORDERED: ONDANSETRON 4 MG/2 ML (SDV) Z0FRAN IV PRN (01:00)
[2023-01-30] MEDS: levETIRAcetam 1000 mg/NS 100ml IVPB IV SCH ×2 (01:06→11:24)
[2023-01-30] MEDS: D5 1/2 NS W/KCL 20 MEQ/L 1,000 ML IV SCH ×2 (01:06→08:07)
[2023-01-30] MEDS: fentaNYL INJ 100 MCG/2 ML AMP IV PRN ×4 (01:55→13:43)
[2023-01-30 03:35] VITALS: BP 156/81
[2023-01-30 07:33] LABS: ALBUMIN 3.4 GM/DL (3.2-4.5); BILIRUBIN,TOTAL 7.3 MG/DL (0.1-1.0); CALCIUM 8.2 MG/DL (8.5-10.1); CREATININE SERUM 0.84 MG/DL (0.60-1.30); POTASSIUM 3.9 MMOL/L (3.6-5.0); TOTAL PROTEIN 6.1 GM/DL (6.4-8.2)
[2023-01-30 08:26] LABS: EOSINOPHILS # (AUTO) 0.1 10^3/uL (0.0-0.3); EOSINOPHILS % (AUTO) 1 % (0-10); MONOCYTES # (AUTO) 0.8 10^3/uL (0.0-1.0)
[2023-01-30 08:28] LABS: BASOPHILS % (AUTO) 0 % (0-10); HEMATOCRIT 43 % (40-54); HEMOGLOBIN 15.4 g/dL (13.3-17.7); LYMPHOCYTES # (AUTO) 1.2 10^3/uL (1.0-4.0); LYMPHOCYTES % (AUTO) 11 % (12-44); MEAN CORPUSCULAR HEMOGLOBIN 34 pg (25-34); MEAN CORPUSCULAR HGB CONC 36 g/dL (32-36); MEAN CORPUSCULAR VOLUME 93 fL (80-99); MEAN PLATELET VOLUME 11.7 fL (9.0-12.2); MONOCYTES % (AUTO) 8 % (0-12); NEUTROPHILS # (AUTO) 8.2 10^3/uL (1.8-7.8); NEUTROPHILS % (AUTO) 79 % (42-75); PLATELET COUNT 128 10^3/uL (130-400); WHITE BLOOD COUNT 10.3 10^3/uL (4.3-11.0)
[2023-01-30] MEDS ORDERED: PANTOPRAZOLE 40 MG (PROTONIX) VIAL IV SCH (09:00)
--- NOTE | 2023-01-30 09:10 | Diagnostic Imaging Report ---
EXAMINATION: CT chest, abdomen and pelvis without intravenous contrast. TECHNIQUE: Multiple contiguous axial images were obtained through the chest, abdomen and pelvis without intravenous contrast. All CT scans use one or more of the following dose optimizing techniques: automated exposure control, MA and/or KvP adjustment based on patient size and exam type or iterative reconstruction. HISTORY: EPIGASTRIC PAIN, JAUNDICE COMPARISON: None available. FINDINGS: Thyroid: The thyroid is normal. Mediastinum: Heart size is normal without significant pericardial effusion. The aorta is normal in caliber. No suspicious lymphadenopathy. Lungs and airways: The lungs are clear without consolidation, pleural effusion, or pneumothorax. No suspicious pulmonary lesion. There is atelectasis within the dependent lungs. The airways are normal. Solid organs: The liver is normal. The gallbladder is normal. There is no biliary ductal dilation. Pancreas is normal. Spleen is normal. Adrenal glands are normal. The kidneys are normal without hydronephrosis. Bowel: The stomach and small bowel are normal without obstruction. The colon and appendix are normal. Peritoneum: There is no intraperitoneal free fluid or free air. No suspicious lymphadenopathy. Vasculature: Normal without aneurysm. Musculoskeletal: Degenerative changes of the spine without suspicious osseous lesion or compression fracture. Pelvis: The prostate gland is normal. There is mild bladder wall thickening. IMPRESSION: 1. No acute abnormality in the chest, abdomen, or pelvis. 2. Agree with preliminary interpretation. Dictated by: Dictated on workstation # [id number]
--- NOTE | 2023-01-30 09:19 | Consultation - Surgery ---
[facility] 01/30/23 0919: History of Present Illness History of Present Illness Patient Consulted On(josef/time) 01/30/23 09:14 Date Seen by Provider: Jan 30, 2023 Time Seen by Provider: 08:50 History of Present Illness Consult requested by Dr. Conti. Patient presented to the ED on 01/29 with 5 day history of epigastric abdominal pain as well as nausea and vomiting. Pain was up to a 10/10 in severity but is now a 5/10. WBC 11.5 on admission down to 10.3 this morning. He has had decreased appetite. Eating and deep breaths make the pain worse, eating also made nausea and vomiting worse. He has noticed his skin looking "yellow" for the past few days. Denies CP, SOB. Not on blood thinners. His is at bedside. Allergies and Home Medications Allergies Coded Allergies: shellfish derived (Verified Allergy, Unknown, 03/19/13) Patient Home Medication List Home Medication List Reviewed: Yes Benazepril HCl (Benazepril HCl) 20 Mg Tablet, 20 MG PO DAILY, (Reported) Entered as Reported by: APOLLO GIRALDO on 01/30/231251 Last Action: Reviewed Brimonidine Tartrate/Timolol (Brimonidine-Timolol 0.2%-0.5%) 0.2 %-0.5 % Drops, 1 DROP OU DAILY, (Reported) Entered as Reported by: APOLLO GIRALDO on 01/30/231251 Last Action: Reviewed Dorzolamide HCl (Dorzolamide HCl) 2 % Drops, 1 DROP OP DAILY, (Reported) Entered as Reported by: APOLLO GIRALDO on 01/30/231251 Last Action: Reviewed Galcanezumab-Gnlm (Emgality) 120 Mg/Ml Pen.injctr, 120 MG IJ EVERY 28 DAYS, (Reported) Entered as Reported by: APOLLO GIRALDO on 01/30/231251 Last Action: Reviewed Latanoprost (Xalatan) 0.005 % Drops, 1 DROP OU HS, (Reported) Entered as Reported by: APOLLO GIRALDO on 01/30/231251 Last Action: Reviewed Levetiracetam (Levetiracetam) 500 Mg Tablet, 1,500 MG PO BID, (Reported) Entered as Reported by: APOLLO GIRALDO on 01/30/231251 Last Action: Reviewed Melatonin (Melatonin) 10 Mg Tablet, 10 MG PO HS, (Reported) Entered as Reported by: APOLLO GIRALDO on 01/30/23 125 Last Action: Reviewed Rimegepant Sulfate (Nurtec Odt) 75 Mg Tab.rapdis, 75 MG SL DAILY PRN for MIGRAINE, (Reported) Entered as Reported by: APOLLO GIRALDO on 01/30/23 125 Last Action: Reviewed Discontinued Medications Amlodipine Besylate (Norvasc Tablet) 10 Mg Tablet, 10 MG PO DAILY, (Reported) Discontinued Reason: No Longer Taking Entered as Reported by: DILMA DIAZ on 03/09/13 8167 Last Action: Discontinued Latanoprost (Xalatan) 2.5 Ml Drops, 1 DROP OU HS, (Reported) Discontinued Reason: No Longer Taking Entered as Reported by: CATHI CARDONA on 03/19/13 1232 Last Action: Discontinued [Combigan Opth] , 1 DROP OU BID, (Reported) Discontinued Reason: No Longer Taking Entered as Reported by: CATHI CARDONA on 03/19/13 1233 Last Action: Discontinued Past Ujhhnow-Srrvjf-Cqpgow Hx Patient Social History Smoking Status: Never a Smoker Type Used: Smokeless Tobacco 2nd Hand Smoke Exposure: No Alcohol Use?: No Have you traveled recently?: No Immunizations Up To Date Tetanus Booster (TDap): More than 5yrs PED Vaccines UTD: Yes Seasonal Allergies Seasonal Allergies: No Surgeries History of Surgeries: Yes Surgeries: Orthopedic (left wrist and left hip/leg), Rectal (hemorroidectomy) Respiratory History of Respiratory Disorde: No Cardiovascular History of Cardiac Disorders: Yes Cardiac Disorders: Hypertension Neurological History of Neurological Disord: Yes (SEIZURES DX 2019) Neurological Disorders: Headaches /Migraines, Seizure Disorder Reproductive System Hx Reproductive Disorders: No Sexually Transmitted Disease: No Genitourinary History of Genitourinary Disor: No Gastrointestinal History of Gastrointestinal Di: Yes Gastrointestinal Disorders: Hemorrhoids, Polyps Musculoskeletal History of Musculoskeletal Dis: Yes (LEFT HIP AND LEG FX'S /ORIF'S ) Musculoskeletal Disorders: Fractures Endocrine History of Endocrine Disorders: No HEENT History of HEENT Disorders: Yes HEENT Disorders: Glaucoma Cancer History of Cancer: No Psychosocial History of Psychiatric Problem: No Integumentary History of Skin or Integumenta: No Blood Transfusions History of Blood Disorders: No Family Medical History Significant Family History: No Pertinent Family Hx Review of Systems-General Constitutional: No chills, No fever EENTM: No blurred vision, No double vision Respiratory: No cough, No dyspnea on exertion Cardiovascular: No chest pain, No edema Gastrointestinal: abdominal pain (epigastric), nausea, vomiting Genitourinary: No decreased output; other (dark colored urine) Musculoskeletal: No back pain, No joint pain Skin: change in color ("yellow"); No change in hair/nails Psychiatric/Neurological: Denies Anxiety, Denies Depressed All Other Systems Reviewed Negative Unless Noted: Yes (Negative excepted noted.) Physical Exam-General Problems Physical Exam Vital Signs Vital Signs - First Documented 01/29/23 01/30/23 21:22 00:53 Temp 36.0 Pulse 81 Resp 18 B/P (MAP) 189/127 (147) Pulse Ox 93 O2 Delivery Room Air O2 Flow Rate 2.00 Capillary Refill : Less Than 3 Seconds General Appearance: WD/WN, no apparent distress HEENT: PERRL/EOMI, scleral icterus (R), scleral icterus (L) Neck: full range of motion, normal inspection Respiratory: chest non-tender, no respiratory distress, no accessory muscle use Cardiovascular: no edema, no JVD Gastrointestinal: soft, tenderness (epigastric) Rectal: deferred Back: normal inspection, no vertebral tenderness Extremities: normal inspection, no pedal edema Neurologic/Psychiatric: no motor/sensory deficits, alert, normal mood/affect, oriented x 3 Skin: warm/dry, jaundice Lymphatic: no adenopathy Data Review Labs Laboratory Tests 01/29/23 21:34: White Blood Count 11.5H, Red Blood Count 5.17, Hemoglobin 17.0, Hematocrit 48, Mean Corpuscular Volume 93, Mean Corpuscular Hemoglobin 33, Mean Corpuscular Hemoglobin Concent 35, Red Cell Distribution Width 12.0, Platelet Count 158, Mean Platelet Volume 11.9, Immature Granulocyte % (Auto) 0, Neutrophils (%) (Au to) 80H, Lymphocytes (%) (Auto) 11L, Monocytes (%) (Auto) 6, Eosinophils (%) (Auto) 2, Basophils (%) (Auto) 0, Neutrophils # (Auto) 9.2H, Lymphocytes # (Auto) 1.2, Monocytes # (Auto) 0.7, Eosinophils # (Auto) 0.3, Basophils # (Auto) 0.1, Immature Granulocyte # (Auto) 0.0, Erythrocyte Sedimentation Rate 12, Prothrombin Time 12.9, INR Comment 0.9, Activated Partial Thromboplast Time 27, Sodium Level 137, Potassium Level 3.6, Chloride Level 100, Carbon Dioxide Level 22, Anion Gap 15H, Blood Urea Nitrogen 10, Creatinine 0.97, Estimat Glomerular Filtration Rate 89, BUN/Creatinine Ratio 10, Glucose Level 99, Calcium Level 9.0, Corrected Calcium 9.1, Magnesium Level 2.2, Total Bilirubin 6.9H, Aspartate Amino Transf (AST/SGOT) 287H, Alanine Aminotransferase (ALT/SGPT) 405H, Alkaline Phosphatase 225H, Ammonia 49H, Myoglobin 40.1, C-Reactive Protein High Sensitivity 2.40H, Total Protein 6.9, Albumin 3.9, Amylase Level 47, Lipase 35 01/29/23 21:55: Lactic Acid Level 1.17 01/29/23 23:59: Urine Color YELLOW, Urine Clarity CLEAR, Urine pH 6.0, Urine Specific [place] 1.015L, Urine Protein NEGATIVE, Urine Glucose (UA) NEGATIVE, Urine Ketones 3+H, Urine Nitrite NEGATIVE, Urine Bilirubin 1+H, Urine Urobilinogen 2.0, Urine Leukocyte Esterase NEGATIVE, Urine RBC (Auto) TRACE-IH, Urine RBC RARE, Urine WBC RARE, Urine Squamous Epithelial Cells RARE, Urine Crystals NONE, Urine Bacteria NEGATIVE, Urine Casts NONE, Urine Mucus NEGATIVE, Urine Culture Indicated NO 01/30/23 07:05: Sodium Level 135, Potassium Level 3.9, Chloride Level 101, Carbon Dioxide Level 23, Anion Gap 11, Blood Urea Nitrogen 7, Creatinine 0.84, Estimat Glomerular Filtration Rate 99, BUN/Creatinine Ratio 8, Glucose Level 150H, Calcium Level 8.2L, Corrected Calcium 8.7, Total Bilirubin 7.3H, Aspartate Amino Transf (AST/SGOT) 333H, Alanine Aminotransferase (ALT/SGPT) 440H, Alkaline Phosphatase 191H, Total Protein 6.1L, Albumin 3.4, Amylase Level 33, Lipase 21 01/30/23 08:18: White Blood Count 10.3, Red Blood Count 4.60, Hemoglobin 15.4, Hematocrit 43, Mean Corpuscular Volume 93, Mean Corpuscular Hemoglobin 34, Mean Corpuscular Hemoglobin Concent 36, Red Cell Distribution Width 11.9, Platelet Count 128L, Mean Platelet Volume 11.7, Immature Granulocyte % (Auto) 0, Neutrophils (%) (Auto) 79H, Lymphocytes (%) (Auto) 11L, Monocytes (%) (Auto) 8, Eosinophils (%) (Auto) 1, Basophils (%) (Auto) 0, Neutrophils # (Auto) 8.2H, Lymphocytes # (Auto) 1.2, Monocytes # (Auto) 0.8, Eosinophils # (Auto) 0.1, Basophils # (Auto) 0.0, Immature Granulocyte # (Auto) 0.0, Percent Immature Platelet Fraction 6.9 Assessment/Plan Assessment/Plan Assessment/Plan Epigastric abdominal pain Leukocytosis-resolved Elevated bilirubin and liver enzymes Jaundice CT A/P without acute abnormalities though to Dr. Lowery's read seemed to have gallbladder distension and possible ductal dilation Abdominal U/S this morning for further investigation Discussed with pt this is likely due to stone blocking bile duct and will require ERCP with cholecystectomy afterwards. Discussed need to clear blockage first given risk of ascending cholangitis. Plan to transfer to another facility for ERCP, discussed he can return to Dr. Lowery for cholecystectomy at later date if not completed during admission for ERCP He agrees to this plan ALFONSO LOWERY DO 01/30/23 2030: History of Present Illness History of Present Illness History of Present Illness Consult requested by Dr. Byrd. Patient is a 62 year old male who has been ill for about 5 days. Having abodminal pain in ruq and epigastric area. Having nausea and vomiting. Food would make worse. Nothing makes better. Now 5/10 pain but was up to 10/10. No appetite. Started having jaundice. Had ct scan which was noraml. Had u/s showing small stones/sludge and gallbladder wall thickening. T bili greater than 7 today. Allergies and Home Medications Allergies Coded Allergies: shellfish derived (Verified Allergy, Unknown, 03/19/13) Patient Home Medication List Home Medication List Reviewed: Yes Benazepril HCl (Benazepril HCl) 20 Mg Tablet, 20 MG PO DAILY, (Reported) Entered as Reported by: APOLLO GIRALDO on 01/30/23 1252 Last Action: Reviewed Brimonidine Tartrate/Timolol (Brimonidine-Timolol 0.2%-0.5%) 0.2 %-0.5 % Drops, 1 DROP OU DAILY, (Reported) Entered as Reported by: APOLLO GIRALDO on 01/30/231251 Last Action: Reviewed Dorzolamide HCl (Dorzolamide HCl) 2 % Drops, 1 DROP OP DAILY, (Reported) Entered as Reported by: APOLLO GIRALDO on 01/30/231251 Last Action: Reviewed Galcanezumab-Gnlm (Emgality) 120 Mg/Ml Pen.injctr, 120 MG IJ EVERY 28 DAYS, (Reported) Entered as Reported by: APOLLO GIRALDO on 01/30/231251 Last Action: Reviewed Latanoprost (Xalatan) 0.005 % Drops, 1 DROP OU HS, (Reported) Entered as Reported by: APOLLO GIRALDO on 01/30/231251 Last Action: Reviewed Levetiracetam (Levetiracetam) 500 Mg Tablet, 1,500 MG PO BID, (Reported) Entered as Reported by: APOLLO GIRALDO on 01/30/231251 Last Action: Reviewed Melatonin (Melatonin) 10 Mg Tablet, 10 MG PO HS, (Reported) Entered as Reported by: APOLLO GIRALDO on 01/30/231251 Last Action: Reviewed Rimegepant Sulfate (Nurtec Odt) 75 Mg Tab.rapdis, 75 MG SL DAILY PRN for MIGRAINE, (Reported) Entered as Reported by: APOLLO GIRALDO on 01/30/231251 Last Action: Reviewed Discontinued Medications Amlodipine Besylate (Norvasc Tablet) 10 Mg Tablet, 10 MG PO DAILY, (Reported) Discontinued Reason: No Longer Taking Entered as Reported by: DILMA DIAZ on 03/09/13 3730 Last Action: Discontinued Latanoprost (Xalatan) 2.5 Ml Drops, 1 DROP OU HS, (Reported) Discontinued Reason: No Longer Taking Entered as Reported by: CATHI CARDONA on 03/19/131231 Last Action: Discontinued [Combigan Opth] , 1 DROP OU BID, (Reported) Discontinued Reason: No Longer Taking Entered as Reported by: CATHI CARDONA on 03/19/13 032 Last Action: Discontinued Past Nhsipms-Ucqshs-Nxprtm Hx Reviewed Nursing Assessment Reviewed/Agree w Nursing PMH: Yes Family Medical History Significant Family History: No Pertinent Family Hx Review of Systems-General Constitutional: No chills, No fever EENTM: No blurred vision, No double vision Respiratory: No cough, No dyspnea on exertion Cardiovascular: No chest pain, No edema Gastrointestinal: abdominal pain (RUQ), nausea, vomiting Genitourinary: No decreased output; other (dark colored urine) Musculoskeletal: No back pain, No joint pain Skin: change in color ("yellow"); No change in hair/nails Psychiatric/Neurological: Denies Anxiety, Denies Depressed All Other Systems Reviewed Negative Unless Noted: Yes (Negative excepted noted.) Physical Exam-General Problems Physical Exam General Appearance: WD/WN, no apparent distress HEENT: normal ENT inspection (jaundice under tongue), scleral icterus (R), scleral icterus (L) Neck: full range of motion Respiratory: chest non-tender, no respiratory distress, no accessory muscle use Cardiovascular: no edema, no JVD Gastrointestinal: soft, tenderness (epigastric/ruq) Rectal: deferred Back: normal inspection, no vertebral tenderness Extremities: normal inspection, no pedal edema Neurologic/Psychiatric: no motor/sensory deficits, alert, normal mood/affect, oriented x 3 Skin: warm/dry, jaundice Lymphatic: no adenopathy Assessment/Plan Assessment/Plan Assessment/Plan Epigastric/RUQ abdominal pain Leukocytosis-resolved Elevated bilirubin and liver enzymes Jaundice CT A/P without acute abnormalities though to Dr. Lowery's read seemed to have gallbladder distension and possible ductal dilation Abdominal U/S this morning for further investigation Discussed with pt this is likely due to stone blocking bile duct and will require ERCP with cholecystectomy afterwards. Discussed need to clear blockage first given risk of ascending cholangitis. Plan to transfer to another facility for ERCP, discussed he can return to Dr. Lowery for cholecystectomy at later date if not completed during admission for E FAMILY NURSE He agrees to this plan Supervisory-Addendum Brief Verification & Attestation Participated in pt care: history, MDM, physical Personally performed: exam, history, MDM, supervision of care Care discussed with: Medical Student Procedures: n/a Results interpretation: Verified all documentation Verification and Attestation of Medical Student E/M Service A medical student performed and documented this service in my presence. I reviewed and verified all information documented by the medical student and made modifications to such information, when appropriate. I personally performed the physical exam and medical decision making. Alfonso Lowery, Jan 30, 2023,20:30 VERONICA LESTER Jan 30, 2023 09:19 ALFONSO LOWERY DO Jan 30, 2023 20:30
--- NOTE | 2023-01-30 09:34 | Diagnostic Imaging Report ---
CLINICAL INDICATION: Patient with epigastric pain. EXAM: Portable chest x-ray upright view. COMPARISON: Chest x-ray dated 03/04/2019. FINDINGS: Lungs/pleura: There is mild bibasilar atelectasis. Otherwise, lungs are clear. There is no pneumothorax. There is no pleural effusion. Mediastinum: Unremarkable. Pulmonary vasculature: Pulmonary vasculature is mildly congested. Heart: There is cardiomegaly Bones/extrathoracic soft tissue: Unremarkable. IMPRESSION: 1: There is cardiomegaly with mildly congested pulmonary vasculature. 2: There is mild bibasilar atelectasis. Dictated by: Dictated on workstation # [id number]
--- NOTE | 2023-01-30 11:00 | Diagnostic Imaging Report ---
PROCEDURE: Ultrasound abdomen complete. TECHNIQUE: Multiple real-time grayscale images were obtained of the abdomen in various projections. INDICATION: Abdominal pain. FINDINGS: The liver is normal in size. There is hepatopetal flow in main portal vein. Common bile duct is not well-visualized. There is some gallbladder wall thickening up to 6 mm with some questionable sludge. Pancreas is partially obscured by bowel gas. Spleen measures up to 14 cm. Aorta is nonaneurysmal. The IVC is patent. Kidneys normal. There is no ascites. Overall examination is somewhat limited due to body habitus and bowel gas. IMPRESSION: Gallbladder wall thickening up to 6 mm with some questionable sludge. Mild splenomegaly. Otherwise unremarkable abdominal ultrasound. Dictated by: Dictated on workstation # [id number]
--- NOTE | 2023-01-30 11:35 | Short Stay Summary-Hospitalist ---
History of Present Illness HPI/Chief Complaint Patient is 62-year-old male with past medical history of hypertension and epilepsy presented to the emergency department due to abdominal pain. He states his symptoms started on January 24 with abdominal pain and poor appetite. He states it continued throughout the week and he has been unable to keep anything down. His pain intensified last night and he noticed dark urine so decided to seek evaluation in the emergency department. His states she tried to give him chicken little soup and he immediately vomited this up. He did have some diarrhea as well throughout this. He denies any dark or bloody stools or any hematemesis. In the emergency room a CT of his abdomen was done which showed a dilated gallbladder and he was found to have a transaminitis with a bilirubin of 6.9. He was admitted for further management. This morning his bilirubin has trended up to 7.3 and he reports still feeling poorly unless he is fentanyl. Source: patient, family Date Seen 01/30/23 Time Seen by a Provider: 11:34 Attending Physician Michael Morales MD PCP Admitting Physician: Brent Conti MD Attending Physician: Brent Conti MD Referring Physician Date of Admission Jan 30, 2023 at 00:37 Home Medications & Allergies Home Medications Reviewed patient Home Medication Reconciliation performed by pharmacy medication reconciliations reliability technicians and/or nursing. Patients Allergies have been reviewed. Allergies Allergies Coded Allergies shellfish derived (Verified Allergy, Unknown, 03/19/13) Past Zqaelde-Wczavs-Wijbjh Hx Patient Social History Marrital Status: Tobacco Use?: No Smoking Status: Never a Smoker Use of E-Cig and/or Vaping dev: No Substance use?: No Alcohol Use?: No Pt feels they are or have been: No Immunizations Up To Date First/Initial COVID19 Vaccinat: X2 Second COVID19 Vaccination Gabriel: X2 Hepatitis A: No Hepatitis B: No PED Vaccines UTD: Yes Seasonal Allergies Seasonal Allergies: No Current Status Advance Directives: No Communicates: Verbally Primary Language: Frisian Preferred Spoken Language: Frisian Is interpretation needed?: No Sensory deficits: Vision impairment Past Medical History Surgeries: Orthopedic (left wrist and left hip/leg), Rectal (hemorroidectomy) Hypertension Headaches /Migraines, Seizure Disorder Sexually Transmitted Disease: No Hemorrhoids, Polyps Fractures Glaucoma Blood Disorders: No Family Medical History Reviewed Nursing Family Hx No Pertinent Family Hx PAST SURGICAL HISTORY: -HEMORRHOIDECTOMY 2008 -COLONOSCOPY / POLYPECTOMY 2012 -LEFT HIP FRACTURE WITH ORIF AND LEFT LEG FRACTURE WITH ORIF DUE TO FALLING OFF A ROOF WHEN YOUNG Review of Systems Constitutional: see HPI Physical Exam Physical Exam Vital Signs Vital Signs - First Documented 01/29/23 01/30/23 21:22 00:53 Temp 36.0 Pulse 81 Resp 18 B/P (MAP) 189/127 (147) Pulse Ox 93 O2 Delivery Room Air O2 Flow Rate 2.00 Capillary Refill : Less Than 3 Seconds Height, Weight, BMI Height: 5'9.00" Weight: 160lbs. 7.0oz. [id number]; 32.88 BMI Method:Estimated General Appearance: No Apparent Distress, WD/WN Respiratory: Lungs Clear, No Respiratory Distress Cardiovascular: Regular Rate, Rhythm, No Murmur Gastrointestinal: Normal Bowel Sounds, Non Tender, Soft; No Distended Neurologic/Psychiatric: Alert, Oriented x3 Skin: Jaundice Results Results/Procedures Labs Laboratory Tests 01/29/23 21:34 01/30/23 07:05 01/30/23 08:18 Patient resulted labs reviewed. Imaging: Reviewed Imaging Report Short Stay Diagnosis Discharge Diagnosis-Short Stay Admission Diagnosis choledocholithiasis Final Discharge Diagnosis choledocholithiasis Conclusion Plan choledocholithiasis Discussed with surgery who agreed with plan for us[facility] Reviewed imaging with Dr Montano Given constellation of symptoms, hyperbilirubinemia, and sludge presumably has choledocholithiasis Contact [facility] for transfer, accepted by Dr Muñoz Updated patient and his and daughter on plan Epilepsy IV Keppra to replace home keppra HTN BP well controlled when pain controlled Diagnosis/Problems Diagnosis/Problems (1) Choledocholithiasis (2) Hx of seizure disorder Status: Acute (3) Jaundice Status: Acute (4) HTN (hypertension) Status: Acute Copy Copies To 1: MICHAEL MORALES MD, KATELYN M MD Jan 30, 2023 11:35
[2023-01-30 11:50] VITALS: BP 138/83
[2023-01-30] MEDS ORDERED: RIME75TA SL (12:52)
[2023-01-30] MEDS ORDERED: GALC120P IJ (12:52)
[2023-01-30] MEDS ORDERED: BENA-3 PO (12:52)
[2023-01-30] MEDS ORDERED: LEVE500T6 PO (12:52)
[2023-01-30] MEDS ORDERED: LATA2.5D19 OU (12:52)
[2023-01-30] MEDS ORDERED: BRIM5DRO OU (12:52)
[2023-01-30] MEDS ORDERED: MELA10TA2 PO (12:52)
[2023-01-30] MEDS ORDERED: NF-DOR2% OP (12:52)
--- NOTE | 2023-01-30 16:02 | Progress Note ---
Standard Progress Note Progress Notes/Assess & Plan Date Seen by a Provider: Jan 30, 2023 Time Seen by a Provider: 15:30 Progress/Assessment & Plan I was officially consulted by Dr. Conti for hyperbilirubinemia. This was an appropriate consult due to pathophysiology however also due to the fact of when the patient came in and me being plc controls engineer. After reviewing patients EMR, I was unexpectedly informed that the patient was seen by another general surgeon. This is inappropriate on many different levels and will be brought up to medical staff. For now I will defer management to the admitting physician and the former natural remedy consultant. Focused Exam Lactate Level 01/29/23 21:55: Lactic Acid Level 1.17 DEZ CARMEN MD Jan 30, 2023 16:02
[2023-01-30 21:44] LABS: HEPATITIS C ANTIBODY C Non-Reactive (Non-Reactive)
== END 2023-01-30 13:45 | disposition short-term general hospital (02) | DRG 446 ==
LOC: EDUNIT# 21:02 → ER 21:03 → 4TH 01-30 00:37
PROVIDERS: ADMIT Internal Medicine; ATTEND Internal Medicine
DX: K80.50 Calculus of bile duct without cholangitis or cholecystitis without obstruction (principal); G40.909 Epilepsy, unspecified, not intractable, without status epilepticus; I10 Essential (primary) hypertension; G43.909 Migraine, unspecified, not intractable, without status migrainosus; H40.9 Unspecified glaucoma
CPT/HCPCS: 36415; 71045; 71250; 74176; 76700; 80053; 80074; 81000; 82140; 82150; 82947; 83605; 83690; 83735; 83874; 85025; 85610; 85652; 85730; 86141; 87081; 93041

== ENCOUNTER → 2023-04-18 | Outpatient (CLI) | payer BC ==
[~2023-04-18] MED LIST changes: +BENA-3 PO; +BRIM5DRO OU; +GALC120P IJ; +LATA2.5D19 OU; +LEVE500T6 PO; +MELA10TA2 PO; +NF-DOR2% OP; +RIME75TA SL
--- NOTE | 2023-04-18 17:07 | Diagnostic Imaging Report ---
EXAMINATION: Lumbosacral spine 2 or 3 views. HISTORY: Chronic back pain. COMPARISON: 01/29/2023. FINDINGS: There is no acute fracture or dislocation of the lumbar spine. Alignment is anatomic. The vertebral body heights are well maintained. Xplu-kc-edwhduam degenerative changes are present in the lumbar spine with marginal osteophytes and facet hypertrophy. The included soft tissues are unremarkable. IMPRESSION: No acute fracture or dislocation in the lumbar spine. Dictated by: Dictated on workstation # [id number]
== END ==
LOC: RAD 10:24
PROVIDERS: ATTEND Family Medicine
DX: M54.50 Low back pain, unspecified (principal); G89.29 Other chronic pain
CPT/HCPCS: 72100